=== PATIENT | male | born 1980 | race Two or more races ===

== ENCOUNTER 2016-05-09 16:26 | Emergency (ER) | payer SELFPAY ==
[~2016-05-09] VITALS: Ht 180.3 cm; Wt 87.5 kg
[2016-05-09] MEDS ORDERED: ATIVAN0.5 MG ORAL (16:37)
[2016-05-09] MEDS ORDERED: COGENTIN1 MG/ML IM (16:37)
[2016-05-09] MEDS ORDERED: LAMICTAL25 MG ORAL (16:37)
[2016-05-09] MEDS ORDERED: MIRTAZAPINE15 MG ORAL (16:37)
[2016-05-09] MEDS ORDERED: LITHIUM CARBON150 MG ORAL (16:37)
[2016-05-09] MEDS ORDERED: QUETIAPINE FUMA25 MG ORAL (16:37)
[2016-05-09 16:40] VITALS: BP 145/102
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
--- NOTE | 2016-05-10 12:10 | Diagnostic Imaging Report ---
Indication: Pain Comparison: None Findings: 5 view left rib series performed. There is no acute rib fracture identified. There is no pneumothorax or evidence of pleural effusion. Impression: No fracture identified
== END 2016-05-09 17:29 ==
LOC: EMR 16:57
DX: Z02.89 Encounter for other administrative examinations (principal); S20.212A Contusion of left front wall of thorax, initial encounter; S70.12XA Contusion of left thigh, initial encounter; H11.31 Conjunctival hemorrhage, right eye; F31.9 Bipolar disorder, unspecified; F20.0 Paranoid schizophrenia; Y04.0XXA Assault by unarmed brawl or fight, initial encounter; Y92.9 Unspecified place or not applicable; Y99.8 Other external cause status
CPT/HCPCS: 99283